=== PATIENT | male | born 1970 | race Caucasian/White ===

== ENCOUNTER 2022-11-28 07:50 | Outpatient (CLI) | payer BC, SELFPAY | END 2022-11-28 07:51 | disposition home or self-care (01) | LOC: NFLDREF 11-29 11:26 | PROVIDERS: PCP Family Medicine; Referring Provider Family Medicine; Visit Provider Family Medicine | DX: E11.9 Type 2 diabetes mellitus without complications (principal); E78.5 Hyperlipidemia, unspecified; K51.90 Ulcerative colitis, unspecified, without complications; Z13.0 Encounter for screening for diseases of the blood and blood-forming organs and certain disorders involving the immune mechanism; Z12.5 Encounter for screening for malignant neoplasm of prostate | CPT/HCPCS: 80053; 80061; 84153 ==

== ENCOUNTER 2023-11-27 07:54 | Outpatient (CLI) | payer BC, SELFPAY ==
--- OUTSIDE RECORDS SUMMARY | 2023-11-30 03:54 | XMS_ITS | Continuity of Care Document ---
Author Organization [facility] Address [address] [address] [place] [address] Phone Care Team Providers Care Card Setter Name Role Phone No Information Unavailable Unavailable Allergies, Adverse Reactions, Alerts Substance Reaction Status Criticality No Known Allergies Active No Inform ation Medications Medication Instructions Dosage Effective Dates (start - stop) Status Comments Delzicol 400 mg capsule,delayed release - Active lisinopril 40 mg tablet - Ac tive azathioprine 50 mg tablet - Active glipizide ER 10 mg tablet, extended release 24 hr - Active metformin 500 mg tablet - Ac tive amlodipine 5 mg tablet - Act troy Procedures Procedure Date Offic/outpt E&m [facility] Routine Serum Collection Bld Ct; Hg/pltlt Ct Auto/compl 14 Hepatic Function Panel Advance Directives Directive Yes / No Effective Date File Name No Information Encounters Encounter Description Practice Location Reason(s) For Visit Diagnoses Date Provider Providers Copied on Encounter [facility], [address] [address], [place], [id number], [place] tel:[phone] No Information 8 No Information Offic/outpt E&m [facility], [address] [address], [place], [id number], [place] tel:[phone] [facility] GI Symptoms or Concerns (chief complaint) Ulcerative colitisDietary Surveil/counse l [address]. [address], [facility] [address], [place], [place], [id number], [place]. tel:[phone] Referring Provider: Felipe Dyer MD C, [address] [place], [address]. tel:[phone] [facility], [address] [address], [place], [place], [id number], [place] tel:[phone] [facility] No Information [address]. [address], [place], [place], [id number], [place]. tel:[phone] Family History Family Member Type Diagnosis Age At Onset Sister Problem (finding) Alive and well Mother Problem (finding) Alive and well Brother Problem (finding) Alive and well Father Problem (finding) Alive and well Payers Payer name Insurance type Covered alliance party ID Authoriza tion(s) No Information Social History Type Description Quantity Date Captured Comments Sex Male Smoking Status No Information Chief Complaint And Reason For Visit No Information Reason For Referral Reason For Referral No Information Plan Of Treatment Date Type Action Status Goal Lifestyle education regardin g diet completed History Of Present Illness Encounter Date Complaint History Of Prese nt Illness GI Symptoms or Concerns The symp toms are reported as being na. The symptoms occur na. The location is na. Aggravating factors include na. Relieving factors include na. The patient is a 43-year-old gentleman who is referred up to us from his primary care provider in [place] where he is followed for ulcerative colitis. Unfortunately, no outside records are provided today; however, the patient is an excellent historian.He states that he was diagnosed with ulcerative colitis in around 1997 at the [facility] via colonoscopy. He recalls being told that he had pancolitis. Since that time, he has had colonoscopies every one to three years (his last about two years ago), which have been mostly normal. He denies any knowledge of any dysplasia, or any knowledge how may biopsies have been taken on each colonoscopy. He is otherwise asymptomatic without any complaints of diarrhea, hematochezia, or abdominal pain. It does not sound as if he has had a ecology teacher appointment since starting azathioprine a Functional Status Date Functional Assessmen t No Information Instructions Date Instruction Additional Infor ellie 1. The patient shoul d be maintained on this current dose of Delzicol which he can take b.i.d., and azathioprine, 200 mg.2. He should be getting blood tests for his azathioprine monitoring including a CBC and liver function tests every three months.3. He should be evaluated with colonoscopy every one to two years with greater than 33 biopsies throughout the colon for dysplasia surveillance.4. He should be given a vaccination for hepatitis A and B if he is found to be nonimmune. He should also have a Pneumovax with a Booster in five years and also receive annual flu shots. He did have chickenpox as a child and may be a candidate for the zoster vaccination when he turns 67.5. He should also be followed with routine blood tests to look for vitamin D deficiency on an annual basis as well as be seen by a ecology teacher every one to three years for skin cancer screening due to the risk associated with azathioprine.I have offered to arrange all of the above-mentioned recommendations, though the patient would like to follow up with his primary care provider and I would defer all of these recommendations to Dr. Dyer. I will be happy to speak with Dr. Dyer if there are any questions or concerns regarding the recommendations above, and we are happy to see the patient in clinic followup if needed. Related to Ulcerative colitis Lifestyle education regarding di et Related to Dietary surveillance and counseling Assessments Type Assessment Date No Information Patient Care Teams Name Effective Dates (start - stop) Status Members No Information
== END 2023-11-27 07:55 | disposition home or self-care (01) ==
LOC: NFLDREF 11-30 03:52
PROVIDERS: PCP Family Medicine; Referring Provider Family Medicine; Visit Provider Family Medicine
DX: E78.5 Hyperlipidemia, unspecified (principal); E11.9 Type 2 diabetes mellitus without complications; Z79.84 Long term (current) use of oral hypoglycemic drugs; Z12.5 Encounter for screening for malignant neoplasm of prostate
CPT/HCPCS: 80053; 80061; G0103

== ENCOUNTER 2024-11-11 08:19 | Outpatient (CLI) | payer BC, SELFPAY | END 2024-11-11 08:20 | disposition home or self-care (01) | LOC: NFLDREF 11-16 01:34 | PROVIDERS: PCP Family Medicine; Referring Provider Family Medicine; Visit Provider Family Medicine | DX: E78.2 Mixed hyperlipidemia (principal); E11.9 Type 2 diabetes mellitus without complications; Z12.5 Encounter for screening for malignant neoplasm of prostate | CPT/HCPCS: 80048; 80061; G0103 ==